=== PATIENT | female | born 1950 | race Caucasian/White ===

== ENCOUNTER → 2017-11-07 | Outpatient (CLI) | payer MEDICARE ==
--- NOTE | 2017-11-07 14:01 | RADIOLOGY REPORT (SQ) ---
EXAM DESCRIPTION: U/S LTD DUPLEX ART/KATHERINE FLOW; U/S RETROPERITON (RENAL/AORTA) COMPLETED DATE/TIME: 11/07/2017 10:45 am REASON FOR STUDY: N18.9; I10 ESSENTIAL (PRIMARY) HYPERTENSION N18.9 I10 ESSENTIAL (PRIMARY) HYPERTE NSION N18.9 CHRONIC KIDNEY DISEASE, UNSPECIFIED COMPARISON: None. TECHNIQUE: Realtime and static grayscale images acquired. Selected color Doppler, velocities and spe ctral images recorded. Ultrasound imaging of the kidneys and bladder was also performed. LIMITATIONS: None. FINDINGS: RIGHT KIDNEY: RENAL ARTERY VELOCITIES: 84 cm/sec. Segmental artery velocity 75 cm/sec. RENAL VEIN: Color doppler flow present, patent. VELOCITY RATIO: 2.1. Normal waveforms. KIDNEY: Right kidney is 9.9 cm in length without cortical thinning. No significant pathology. LEFT KIDNEY: RENAL ARTERY VELOCITIES: 97 cm/sec. Segmental artery velocity 81 cm/sec. RENAL VEIN: Color doppler flow present, patent. VELOCITY RATIO: 2.5. Normal waveforms. KIDNEY: Left kidney is 10.6 cm in length. No cortical thinning. 2 cm left lower pole renal cortic al cyst. BLADDER: Decompressed, no gross stones. OTHER: No other significant finding. IMPRESSION: NO DOPPLER EVIDENCE OF HEMODYNAMICALLY SIGNIFICANT RENAL ARTERY STENOSIS. Incidental finding of a 2 cm benign left lower pole renal cortical cyst COMMENT: NORMAL RENAL ARTERY/AORTA VELOCITY RATIO IS LESS THAN OR EQUAL TO 3.5. TECHNICAL DOCUMENTATION: JOB ID: [id number] [employer]- All Rights Reserved Reading location - IP/workstation name: [email or web address]
--- NOTE | 2017-11-07 14:02 | RADIOLOGY REPORT (SQ) ---
EXAM DESCRIPTION: U/S LTD DUPLEX ART/KATHERINE FLOW; U/S RETROPERITON (RENAL/AORTA) COMPLETED DATE/TIME: 11/07/2017 10:45 am REASON FOR STUDY: N18.9; I10 ESSENTIAL (PRIMARY) HYPERTENSION N18.9 I10 ESSENTIAL (PRIMARY) HYPERTE NSION N18.9 CHRONIC KIDNEY DISEASE, UNSPECIFIED COMPARISON: None. TECHNIQUE: Realtime and static grayscale images acquired. Selected color Doppler, velocities and spe ctral images recorded. Ultrasound imaging of the kidneys and bladder was also performed. LIMITATIONS: None. FINDINGS: RIGHT KIDNEY: RENAL ARTERY VELOCITIES: 84 cm/sec. Segmental artery velocity 75 cm/sec. RENAL VEIN: Color doppler flow present, patent. VELOCITY RATIO: 2.1. Normal waveforms. KIDNEY: Right kidney is 9.9 cm in length without cortical thinning. No significant pathology. LEFT KIDNEY: RENAL ARTERY VELOCITIES: 97 cm/sec. Segmental artery velocity 81 cm/sec. RENAL VEIN: Color doppler flow present, patent. VELOCITY RATIO: 2.5. Normal waveforms. KIDNEY: Left kidney is 10.6 cm in length. No cortical thinning. 2 cm left lower pole renal cortic al cyst. BLADDER: Decompressed, no gross stones. OTHER: No other significant finding. IMPRESSION: NO DOPPLER EVIDENCE OF HEMODYNAMICALLY SIGNIFICANT RENAL ARTERY STENOSIS. Incidental finding of a 2 cm benign left lower pole renal cortical cyst COMMENT: NORMAL RENAL ARTERY/AORTA VELOCITY RATIO IS LESS THAN OR EQUAL TO 3.5. TECHNICAL DOCUMENTATION: JOB ID: [id number] [employer]- All Rights Reserved Reading location - IP/workstation name: [email or web address]
== END ==
LOC: RAD 10:54
PROVIDERS: ATTEND Registered Nurse
DX: N18.9 Chronic kidney disease, unspecified (principal)
CPT/HCPCS: 76770; 93976